=== PATIENT | female | born 1950 | race Caucasian/White ===

== ENCOUNTER 2016-10-16 10:06 | Emergency (ER) | payer MEDICARE, OTHER, SELFPAY ==
[~2016-10-16] VITALS: Ht 162.6 cm; Wt 51.5 kg
[2016-10-16 10:07] VITALS: BP 166/82
[2016-10-16] MEDS ORDERED: SLEEPING PILL (10:42)
[2016-10-16] MEDS ORDERED: B/P (10:42)
[2016-10-16] MEDS ORDERED: CHOLESTEROL MED (10:42)
[2016-10-16] MEDS ORDERED: ANXIETY PILL (10:42)
== END 2016-10-16 11:36 | disposition home or self-care (01) ==
LOC: ED 11:30
DX: S62.316A Displaced fracture of base of fifth metacarpal bone, right hand, initial encounter for closed fracture (principal); W19.XXXA Unspecified fall, initial encounter; Y93.89 Activity, other specified; Y92.89 Other specified places as the place of occurrence of the external cause; Y99.8 Other external cause status
CPT/HCPCS: 29125

== ENCOUNTER → 2017-12-12 | Outpatient (CLI) | payer OTHER ==
[~2017-12-12] MED LIST: AMLO10TA6 PO; ANXIETY PILL; ATOR-2 PO; B/P; CHOLESTEROL MED; LISI1TAB5 PO; SERT50TA PO; SLEEPING PILL; TRAZ-137 PO
== END | disposition home or self-care (01) ==
LOC: CFH 14:14
PROVIDERS: ATTEND Internal Medicine Cardiovascular Disease
DX: I51.7 Cardiomegaly (principal); E78.5 Hyperlipidemia, unspecified; I10 Essential (primary) hypertension; R06.02 Shortness of breath; Z87.891 Personal history of nicotine dependence
CPT/HCPCS: 93306

== ENCOUNTER → 2018-08-21 | Outpatient (CLI) | payer MEDICARE ==
[~2018-08-21] MED LIST changes: -AMLO10TA6 PO; +AMLO10TA8 PO
== END | disposition home or self-care (01) ==
LOC: CFH 09:23
PROVIDERS: ATTEND Physician Assistant Medical
DX: R06.02 Shortness of breath (principal)
CPT/HCPCS: 71046